=== PATIENT | male | born 2000 | race Caucasian/White ===

== ENCOUNTER 2020-05-11 21:38 | Emergency (ER) | payer OTHER, SELFPAY ==
[2020-05-11 22:15] VITALS: BP 122/57; PULSE 81; RESP 18; TEMP 36.9; O2SAT 100
--- NOTE | 2020-05-11 22:53 | ED.ANIMALBIT ---
HPI - Animal Bite General Chief Complaint: Animal Bite Stated Complaint: dog bite Time Seen by Provider: 05/11/20 22:36 Source: patient and family Mode of arrival: ambulatory Limitations: no limitations History of Present Illness HPI narrative: 20-year-old with no major medical problems here with complaints of dog bite to his right forearm sustained few hours ago. Patient states that he was with his friend and neighbor's dog accidentally launched on him. As per patient family the dog is immunized. And patient is up-to-date on tetanus. complaint: animal bite Onset (ago): hour(s) (1) Animal: dog Description of animal: household pet Mechanism: bite Location - Extremities: Right: forearm Pain description: dull Context: unprovoked Associated symptoms: none Related Data Allergies Allergy/AdvReac Type Severity Reaction Status Date / Time NKDA Allergy Mild Uncoded 02/24/08 20:58 Review of Systems Review of Systems: All systems reviewed & are unremarkable except as noted in HPI and below Constitutional: Constitutional: Reports no additional constitutional complaints Eyes: Eyes: Reports as per HPI ENT: Reports system reviewed and no additional complaints, except as documented Cardiovascular: Cardiovascular: Reports no additional cardiovascular complaints Respiratory: Respiratory: Reports no additional respiratory complaints Musculoskeletal: Musculoskeletal: Reports as per HPI Neurologic: Reports as per HPI [facility] Social History Social History Gender identity (if verbalized by the patient): Male Exam Narrative: Exam Narrative: GENERAL: Well-appearing, well-nourished, and in no acute distress. HEAD: Normocephalic, atraumatic. EYES: PERRLA and EOMI. ENT: Nares clear, no rhinorrhea or epistaxis. Mucous membranes moist. NECK: Supple. CHEST: Clear to auscultation. No respiratory distress. HEART: Regular rate and rhythm. No murmur heard. Normal peripheral pulses. EXTREMITIES: Normal range of motion. No edema. 3 cms lac on the rt fore arm SKIN: Warm, dry, no rash. NEURO: No focal deficits. Alert and oriented x3. PSYCH: Normal mood and affect. Course Vital Signs Vital signs: Vital Signs Temperature 36.9 C 05/11/20 22:15 Pulse Rate 81 05/11/20 22:15 Respiratory Rate 18 05/11/20 22:15 Blood Pressure 122/57 L 09/15/20 22:15 Pulse Oximetry 100 05/11/20 22:15 Temperature 36.9 C 05/11/20 22:15 Pulse Rate 81 05/11/20 22:15 Respiratory Rate 18 05/11/20 22:15 Blood Pressure 122/57 L 05/11/20 22:15 Pulse Oximetry 100 05/11/20 22:15 Procedures Laceration Laceration 1: Date: 05/11/20 Time: 22:57 Site: upper extremity (rt forearm) Side (If applicable): right Size (cm): 3 Description: linear Depth: simple, single layer Local Anesthetic: lidocaine 1% Amount of anesthesia used (mL): 5 ====== Skin Level ====== Skin layer closed with: nylon Size (cm): 4-0 Number of sutures: 6 ====== Subcutaneous Layer ====== ====== Muscle Layer ====== Technique: running ====== Tendon Layer ====== Discharge Plan Discharge Clinical Impression: Laceration Dog bite Qualifiers: Encounter type: initial encounter Qualified Code(s): W54.0XXA - Bitten by dog, initial encounter Patient Disposition: Home, Self-Care Condition: Stable Instructions: Antibiotic Form, Animal Bite (ED), Laceration (ED) Additional Instructions: Sutures off 7 to 10 days Prescriptions: New amoxicillin-pot clavulanate [Augmentin] 875-125 mg tablet 1 tablet PO Q12H Qty: 20 RF: 0 Follow-up/Referrals: Corrine Ruby MD [Primary Care Provider] - Time of Disposition: 23:01
[2020-05-11 23:13] VITALS: BP 115/74; PULSE 80; RESP 19; TEMP 36.8; O2SAT 98
== END 2020-05-11 23:15 | disposition home or self-care (01) ==
PROVIDERS: Emergency Provider Family Medicine; PCP Pediatrics
DX: S51.851A Open bite of right forearm, initial encounter (principal); W54.0XXA Bitten by dog, initial encounter
CPT/HCPCS: 12002; 99283